=== PATIENT | male | born 1990 | race African-American/Black ===

== ENCOUNTER 2020-04-13 15:44 | Emergency (ER) | payer BC ==
[~2020-04-13] VITALS: Ht 175.3 cm; Wt 86.0 kg
[2020-04-13] MEDS ORDERED: SODIUM CHLORIDE 0.9% 1,000 ML IV ONE (17:42)
[2020-04-13] MEDS ORDERED: ONDANSETRON HCL 4MG/2ML INJ IV STA (17:42)
[2020-04-13] MEDS ORDERED: FAMOTIDINE 20MG/2ML VIAL IV STA (17:42)
[2020-04-13] MEDS ORDERED: KETOROLAC 30MG/ML VIAL IV ONE (18:15)
[2020-04-13 18:22] LABS: BASOPHILS % 0.6 % (0.0-2.0); EOSINOPHILS % 0.1 % (0.0-5.0); HEMATOCRIT. 40.7 % (42.0-52.0); HEMOGLOBIN. 14.1 g/dL (14.0-18.0); LYMPHOCYTES % 11.6 % (20.0-50.0); MEAN CORPUSCULAR HEMOGLOBIN 33.4 pg (28.0-32.0); MEAN CORPUSCULAR VOLUME 96.1 fL (80.0-94.0); MEAN PLATELET VOLUME 7.8 fl (7.4-10.4); MONOCYTES % 5.4 % (2.0-8.0); NEUTROPHILS % 82.3 % (40.0-76.0); PLATELET 258 x1000/uL (130-400); RED BLOOD CELL COUNT 4.24 mill/uL (4.7-6.1)
[2020-04-13 18:29] LABS: CLARITY URINE CLOUDY (CLEAR); COLOR URINE YELLOW (YELLOW); KETONES URINE TRACE (NEGATIVE); LEUKOCYTE ESTERASE URINE NEGATIVE (NEGATIVE); NITRITE URINE NEGATIVE (NEGATIVE); OCCULT BLOOD URINE 1+ (NEGATIVE); PH URINE 5.5 (4.5-8.0); PROTEIN URINE 1+ (NEGATIVE); SPECIFIC GRAVITY URINE 1.032 (1.005-1.030)
[2020-04-13 18:30] LABS: CHLORIDE 108 mEq/L (98-107)
[2020-04-13 18:32] LABS: PROTHROMBIN TIME 11.2 sec (9.6-11.0)
[2020-04-13 18:34] LABS: ETHANOL BLOOD < 10 mg/dL
[2020-04-13 18:45] LABS: *AMPHETAMINES SCREEN URINE NEGATIVE (NEGATIVE); *BARBITURATES SCREEN URINE NEGATIVE (NEGATIVE); *BENZODIAZEPINES SCREEN URINE NEGATIVE (NEGATIVE); *COCAINE SCREEN URINE NEGATIVE (NEGATIVE); METHADONE URINE SCREEN NEGATIVE (NEGATIVE)
[2020-04-13 18:46] LABS: CANNABINOID URINE SCREEN PRESUMTIVE POSITIVE (NEGATIVE); OPIATES URINE SCREEN NEGATIVE (NEGATIVE); PHENCYCLIDINE URINE SCREEN NEGATIVE (NEGATIVE)
[2020-04-13 19:04] VITALS: BP 129/70
[2020-04-13] MEDS ORDERED: ONDANSETRON 4MG ODT PO ONE (20:45)
== END 2020-04-13 20:49 | disposition home or self-care (01) ==
LOC: ER 15:44
DX: R11.2 Nausea with vomiting, unspecified (principal); F12.10 Cannabis abuse, uncomplicated
CPT/HCPCS: 36415; 74021; 80053; 80305; 80320; 81003; 83690; 84484; 85025; 85610; 96361; 96374; 96375; 99284; J1885; J2405; J3490; J7030; Q0162; G0480